=== PATIENT | female | born 1990 | race Caucasian/White ===

== ENCOUNTER 2016-06-27 05:54 | Inpatient (IN) | payer OTHER ==
[~2016-06-27] VITALS: Ht 165.1 cm; Wt 76.9 kg
[2016-06-27] MEDS ORDERED: PREN1TAB80 PO (06:08)
[2016-06-27 06:36] VITALS: BP 118/73
[2016-06-27] MEDS ORDERED: RINGERS SOLUTION,LACTATED 1,000 ML IV PRN (09:22)
[2016-06-27] MEDS ORDERED: OXYTOCIN 30 UNITS/LACT RINGERS 500 ML IV ONE (09:22)
[2016-06-27] MEDS ORDERED: CITRIC ACID/SODIUM CITRATE 30 ML SOLUTION UDCUP PO PRN (09:30)
[2016-06-27] MEDS ORDERED: LIDOCAINE HCL/PF 1% 30 ML VIAL INJ PRN (09:30)
[2016-06-27] MEDS ORDERED: METOCLOPRAMIDE HCL 5 MG/ML 2 ML VIAL IVP PRN (09:30)
[2016-06-27] MEDS: RINGERS SOLUTION,LACTATED 1,000 ML IV SCH ×3 (09:36→15:52)
[2016-06-27] MEDS: FentaNYL CITRATE-PF 100 MCG/2 ML VIAL IVP PRN ×2 (09:46→09:58)
[2016-06-27 10:02] LABS: BASOPHILS % (AUTO) 0.2 % (0.0-2.0); EOSINOPHILS % (AUTO) 0.1 % (1.0-6.0); HEMATOCRIT 34.6 % (36-46); HEMOGLOBIN 11.5 g/dL (12.0-16.0); LYMPHOCYTES # (AUTO) 1.1 K/uL (1.0-4.8); LYMPHOCYTES % (AUTO) 10.6 % (22.0-44.0); MEAN CORPUSCULAR HEMOGLOBIN 29.3 pg (26.0-34.0); MEAN CORPUSCULAR HGB CONC 33.3 G/dL (31.0-37.0); MEAN CORPUSCULAR VOLUME 88 fL (80-100); MONOCYTES # (AUTO) 0.6 K/uL (0.1-1.0); MONOCYTES % (AUTO) 5.7 % (2.0-9.0); NEUTROPHILS # (AUTO) 8.7 K/uL (1.8-7.7); NEUTROPHILS % (AUTO) 83.4 % (40.0-70.0); RED BLOOD CELL COUNT(AUTO) 3.94 MIL/uL (4.00-5.20); RED CELL DISTRIBUTION WIDTH 13.5 % (11.5-14.5); WHITE BLOOD COUNT (AUTO) 10.4 K/uL (4.5-11.0)
[2016-06-27] MEDS ORDERED: FentaNYL/BUPIV 0.125%/NS/PF 200 ML ED ONE ×2 (10:15→21:48)
[2016-06-27] MEDS ORDERED: OXYTOCIN 30 UNITS/LACT RINGERS 500 ML IV PRN (11:24)
[2016-06-27] MEDS ORDERED: FentaNYL/BUPIV 0.125%/NS/PF 200 ML ED PRN (12:16)
[2016-06-27] MEDS ORDERED: BUPIVACAINE HCL/PF 0.25% 10 ML VIAL ONE ×2 (14:40→16:58)
[2016-06-27] MEDS ORDERED: LIDOCAINE HCL/PF 2% 5 ML VIAL ONE ×2 (14:41→16:59)
[2016-06-27] MEDS ORDERED: FentaNYL CITRATE-PF 100 MCG/2 ML VIAL ONE ×2 (19:14→22:54)
[2016-06-27] MEDS ORDERED: LIDOCAINE HCL 2%/EPI 1:200,000/PF 10 ML VIAL ONE (19:51)
[2016-06-27] MEDS ORDERED: OXYGEN THERAPY IH SCH (20:00)
[2016-06-27] MEDS ORDERED: MIDAZOLAM HCL 2 MG/2 ML VIAL ONE (22:52)
[2016-06-27] MEDS ORDERED: METHYLERGONOVINE MALEATE 0.2 MG/ML VIAL IM ONE (23:00)
[2016-06-27] MEDS ORDERED: METHYLERGONOVINE MALEATE 0.2 MG/ML VIAL ONE (23:06)
[2016-06-27] MEDS ORDERED: GLYCERIN/WITCH HAZEL LEAF 40 PADS JAR TP PRN (23:45)
[2016-06-27] MEDS ORDERED: LANOLIN 7 GM OINTMENT TP PRN (23:45)
[2016-06-27] MEDS ORDERED: BENZOCAINE 20%/MENTHOL 56 GM SPRAY CANISTER TP PRN (23:45)
[2016-06-28] MEDS: ACETAMINOPHEN/CODEINE 300-30 MG TABLET PO PRN ×3 (00:41→19:26)
[2016-06-28] MEDS: IBUPROFEN 600 MG TABLET PO PRN ×2 (00:42→09:45)
[2016-06-28] MEDS: MAGNESIUM HYDROXIDE SUSPENSION 30 ML UDCUP PO SCH ×2 (09:36→22:04)
[2016-06-28] MEDS: SENNA/DOCUSATE SODIUM 187-50 MG TABLET PO SCH ×2 (09:37→22:05)
[2016-06-29] MEDS: IBUPROFEN 600 MG TABLET PO PRN (01:29)
[2016-06-29] MEDS: ACETAMINOPHEN/CODEINE 300-30 MG TABLET PO PRN (04:13)
[2016-06-29] MEDS: MAGNESIUM HYDROXIDE SUSPENSION 30 ML UDCUP PO SCH (08:26)
[2016-06-29] MEDS: SENNA/DOCUSATE SODIUM 187-50 MG TABLET PO SCH (08:26)
[2016-06-29] MEDS ORDERED: IBUP-2070 PO (11:44)
[2016-06-29] MEDS ORDERED: FERR-89 PO (11:45)
[2016-06-29] MEDS ORDERED: DSS100 PO (11:46)
== END 2016-06-29 13:40 | disposition home or self-care (01) | DRG 775 ==
LOC: OBSVTOIN 05:54 → 4S 05:54
PROVIDERS: ADMIT Obstetrics & Gynecology; ATTEND Obstetrics & Gynecology
PROC: 10D07Z6 Extraction of Products of Conception, Vacuum, Via Natural or Artificial Opening (ICD-10-PCS; principal; 2016-06-27)
PROC: 0UQMXZZ Repair Vulva, External Approach (ICD-10-PCS; 2016-06-27)
PROC: 0W8NXZZ Division of Female Perineum, External Approach (ICD-10-PCS; 2016-06-27)
PROC: 3E0S3CZ (ICD-10-PCS; 2016-06-27)
PROC: 00HU33Z Insertion of Infusion Device into Spinal Canal, Percutaneous Approach (ICD-10-PCS; 2016-06-27)
DX: O75.89 Other specified complications of labor and delivery (principal); O66.5 Attempted application of vacuum extractor and forceps; O71.82 Other specified trauma to perineum and vulva; Z3A.40 40 weeks gestation of pregnancy; Z37.0 Single live birth; Z98.890 Other specified postprocedural states; Z90.49 Acquired absence of other specified parts of digestive tract
CPT/HCPCS: 86850; 86900; 86901; J2210; J2250; J2590; J3010; J3490; J7120